=== PATIENT | female | born 1955 | race Caucasian/White ===

== ENCOUNTER 2017-03-26 11:17 | Emergency (ER) | payer OTHER | END 2017-03-27 09:39 | disposition home or self-care (01) | LOC: FTE 15:03 | DX: S00.81XA Abrasion of other part of head, initial encounter (principal); S09.90XA Unspecified injury of head, initial encounter; W01.10XA Fall on same level from slipping, tripping and stumbling with subsequent striking against unspecified object, initial encounter; Y92.481 Parking lot as the place of occurrence of the external cause | CPT/HCPCS: 70450; 70486; 99285-25 ==